=== PATIENT | male | born 1970 | race Caucasian/White ===

== ENCOUNTER 2023-01-01 10:26 | Emergency (ER) | payer BC, SELFPAY ==
--- NOTE | 2023-01-01 10:27 | ED.URI ---
HPI - URI/Sore Throat General Chief Complaint: Eye Problems Stated Complaint: Congestion,Bilateral Eye Irritation Time Seen by Provider: 01/01/23 10:27 Source: patient Mode of arrival: ambulatory Limitations: no limitations History of Present Illness HPI Narrative: Gucci is a 52-year-old male patient presenting to the clinic today with complaints of sinus congestion and bilateral eye irritation 5 days. He reports no known fever or chills. 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 Patient denies any fever, chills, rash, headache, visual changes, dizziness, sore throat, shortness of breath, chest pain, palpitations, nausea, vomiting, diarrhea, constipation, abdominal pain, or any urinary issues. PMFSH Comments At the time of my signature, I reviewed and agree with the nursing past medical, surgical, social, and family history. There is no relevant family history pertinent to the patient complaint. Exam Narrative: General: Well-developed, well nourished, in no apparent distress Head: Normocephalic, atraumatic Eyes: Pupils equally round and reactive to light bilaterally, EOM intact, sclera and conjunctive injected, no discharge, lids normal Ears: TMs intact, bulging, red, ear canals clear, no drainage, grossly hearing normal. Nose: Nares patent, clear nasal discharge, moderate inflammation, no sinus tenderness. Mouth: Oral pharynx without lesions or masses, good dentition, MMM. PND Neck: Supple, trachea midline, no enlargement of anterior or posterior cervical nodes, no thyroid masses or goiter palpable. Cardio: Regular rate and rhythm, s1 and s2 normal, no murmur appreciated. Resp: Clear to auscultation bilaterally, no rhonchi, rales, wheezing or rubs Course Course Emergency Course: Portions of this record may have been created with voice recognition software. Level of Care: Express Care Visit Vital Signs Vital signs: Vital signs reviewed MDM - URI/Sore Throat MDM Narrative Medical decision making narrative: At the time of visit patient is resting comfortably on exam table. I suspect patient has URI with bilateral otitis media and viral versus allergic conjunctivitis. Place the patient on some prednisone, Augmentin, and azelastine drops. Supportive measures were discussed with the patient and he voiced understanding discharge instructions and agrees to treatment plan. Differential Diagnosis Differential diagnosis: Likely upper respiratory infection, sinusitis, viral infection, bronchitis, influenza, pharyngitis and other (COVID, conjunctivitis) Discharge Plan Discharge Clinical Impression: Bilateral acute otitis media Acute viral conjunctivitis Qualifiers: Laterality: bilateral Qualified Code(s): B30.9 - Viral conjunctivitis, unspecified URI (upper respiratory infection) Qualifiers: URI type: unspecified URI Qualified Code(s): J06.9 - Acute upper respiratory infection, unspecified Patient Disposition: Home, Self-Care Condition: Stable Instructions: Antibiotic Form, Ear Infection (ED), Upper Respiratory Infection (ED), Conjunctivitis (ED) Additional Instructions: Take prescription medications only as prescribed Increase fluids and stay well hydrated Tylenol/motrin for pain/fever Flonase and OTC antihistamines as directed Vicks vapor rub to open sinuses Sinus rinses for congestion Cepacol spray, cough drops, throat lozenges, warm tea with honey/lemon, gargle salt water to soothe throat BRAT diet for diarrhea Clear liquids x 24 hours then advance as tolerated for nausea/vomiting Go to the ED if you develop a worsening in your condition- high fever not controlled by Tylenol or Motrin, dehydration, weakness, leth
[2023-01-01 10:36] VITALS: BP 165/74; PULSE 93; RESP 18; TEMP 37.2; O2SAT 97
== END 2023-01-01 10:48 | disposition home or self-care (01) ==
PROVIDERS: Emergency Provider Nurse Practitioner Family
DX: H66.93 Otitis media, unspecified, bilateral (principal); H10.33 Unspecified acute conjunctivitis, bilateral; J06.9 Acute upper respiratory infection, unspecified
CPT/HCPCS: 99213; G0463